=== PATIENT | female | born 1940 | race Caucasian/White ===

== ENCOUNTER 2022-03-24 17:05 | Emergency (ER) | payer OTHER, MEDICARE ==
[~2022-03-24] VITALS: Ht 152.4 cm; Wt 49.9 kg
[2022-03-24] MEDS ORDERED: LISINOPRIL10 MG PO (17:28)
[2022-03-24] MEDS ORDERED: IMODIUM A-D2 M2 PO (17:29)
[2022-03-24] MEDS ORDERED: BUDESONIDE ER9 MG PO (17:29)
[2022-03-24] MEDS ORDERED: FOSAMAX70 MG PO (17:29)
[2022-03-24] MEDS ORDERED: DULOXETINE HCL40 MG PO (17:30)
[2022-03-24] MEDS ORDERED: VITAMIN D250 MCG PO (17:30)
[2022-03-24] MEDS ORDERED: TRAZODONE HCL50 MG PO (17:31)
== END 2022-03-24 18:57 | disposition home or self-care (01) ==
LOC: ED 17:05
DX: S70.01XA Contusion of right hip, initial encounter (principal); S60.222A Contusion of left hand, initial encounter; W18.39XA Other fall on same level, initial encounter; Z79.899 Other long term (current) drug therapy
CPT/HCPCS: 73130; 73502; 99283-25